=== PATIENT | female | born 1995 | race Caucasian/White ===

== ENCOUNTER 2016-07-17 08:38 | Emergency (ER) | payer BC ==
[2016-07-17 09:16] VITALS: BP 109/71
--- NOTE | 2016-07-17 10:35 | UC ---
Headache HPI - HPI Summary HPI Summary: hit in head by a [employer] ball yesterday no loc---did have headache and felt nauseated, today has continued headache - History Of Current Complaint Chief Complaint: UCHeadInjury Stated Complaint: HEAD INJURY Time Seen by Provider: 07/17/16 10:21 Hx Obtained From: Patient Hx Last Menstrual Period: current ?: No Onset/Duration: Sudden Onset, Lasting Days - 1, Still Present Onset Of Symptoms: Sudden Pain Intensity: 4 Pain Scale Used: 0-10 Numeric Timing: Constant Character: Throbbing Location of Headache: Frontal Aggravating Factor: Nothing Allevating Factors: Rest, Medication Associated Signs And Symptoms: Positive: Nausea Related History: Recent Trauma: - Allergies/Home Medications Allergies/Adverse Reactions: Allergies Allergy/AdvReac Type Severity Reaction Status Date / Time Penicillins Allergy Rash Verified 07/17/16 09:09 Sulfa Antibiotics Allergy Rash Verified 07/17/16 09:09 PMH/Surg Hx/FS Hx/Imm Hx Previously Healthy: Yes - concussion in the fall 2015 Endocrine History Of: Denies: Diabetes, Thyroid Disease Cardiovascular History Of: Denies: Cardiac Disorders, Hypertension Respiratory History Of: Denies: COPD, Asthma GI/ History Of: Denies: Ulcer - Surgical History Surgical History: Yes Surgery Procedure, Year, and Place: wisdom teeth - Family History Known Family History: Positive: Cardiac Disease, Hypertension, Diabetes Negative: Seizure Disorder - Social History Occupation: Employed Full-time Lives: With Family Alcohol Use: Occasionally Substance Use Type: None Smoking Status (MU): Never Smoked Tobacco - Immunization History Most Recent Influenza Vaccination: fall 2015 Review of Systems Constitutional: Negative Skin: Negative Eyes: Negative ENT: Negative Respiratory: Negative Cardiovascular: Negative Gastrointestinal: Negative Genitourinary: Negative Motor: Negative Neurovascular: Negative Musculoskeletal: Negative Neurological: Headache Psychological: Negative All Other Systems Reviewed And Are Negative: Yes Physical Exam Triage Information Reviewed: Yes Appearance: Well-Appearing, No Pain Distress, Well-Nourished Vital Signs: Initial Vital Signs Temp 97.8 F 07/17/16 09:10 Pulse 59 07/17/16 09:10 Resp 16 07/17/16 09:10 BP 109/71 07/17/16 09:10 Pulse Ox 99 07/17/16 09:10 Vital Signs Reviewed: Yes Eye Exam: Normal Eyes: Positive: Conjunctiva Clear, Other: - perrla, eomi, fundascopic exam wnl ENT Exam: Normal ENT: Positive: Normal ENT inspection, Hearing grossly normal, Pharynx normal, TMs normal. Negative: Nasal congestion, Nasal drainage Dental Exam: Normal Neck exam: Normal Neck: Positive: Supple, Nontender, No Lymphadenopathy Respiratory Exam: Normal Respiratory: Positive: Chest non-tender, Lungs clear, Normal breath sounds, No respiratory distress, No accessory muscle use Cardiovascular Exam: Normal Cardiovascular: Positive: RRR, No Murmur, Pulses Normal, Brisk Capillary Refill Musculoskeletal Exam: Normal Musculoskeletal: Positive: Strength Intact, ROM Intact, No Edema Neurological Exam: Normal Neurological: Positive: Alert, Muscle Tone Normal, Other: - rhombery wnl, balence wnl, no pronator drift Psychological Exam: Normal Psychological: Positive: Normal Response To Family, Age Appropriate Behavior Skin Exam: Normal Headache Course/Dx - Course Course Of Treatment: rest, slow 5 day return to sports after symptoms have resolved - Differential Dx/Diagnosis Differential Diagnosis/HQI/PQRI: Tension Headache, Viral Syndrome, Other - concussion with out LOC Provider Diagnoses: Concussion with out LOC Discharge - Discharge Plan Condition: Stable Disposition: HOME Patient Education Materials: Concussion (ED), Post Concussion Syndrome (ED) Forms: *Work Release Referrals: Marizol Garcia MD [Primary Care Provider] - If Needed
== END 2016-07-17 10:43 | disposition home or self-care (01) ==
LOC: UCEAST 08:38
DX: S06.0X0A Concussion without loss of consciousness, initial encounter (principal); Y93.66 Activity, soccer; W21.02XA Struck by soccer ball, initial encounter; Z88.0 Allergy status to penicillin
CPT/HCPCS: 99211; G0463

== ENCOUNTER 2016-07-19 14:57 | Emergency (ER) | payer BC ==
[2016-07-19 15:14] VITALS: BP 113/65
--- NOTE | 2016-07-19 21:31 | UC ---
Mallory, DoctorLuly, scribed for Ann-Marie Kline MD on 07/19/16 at 1619 . Headache HPI - HPI Summary HPI Summary: 20 year old female arrived to [facility] c/o headache and light sensitivity after being hit in the head by a soccer ball on 07/16 at 21:30. She reports constant headache and light/sound sensitivity since onset, as well as marginal lightheadedness while standing up abruptly. She denies any lightheadedness otherwise; and denies any dizziness, nausea or vomiting. She previously visited [facility] on 07/17 and was dx with a concussion with no LOC by Dr. George. No CT was done. She reports taking Ibuprofen to manage her [place]. She has a PMHx of concussions with one prior dx of a concussion in 02/2016; no other pertinent PMHx. She plays soccer 1-2x a week in a [employer] and is employed full- time. - History Of Current Complaint Chief Complaint: UCHeadache Stated Complaint: HEADACHE,LIGHT SENSITIVITY Time Seen by Provider: 07/19/16 15:49 Hx Obtained From: Patient Hx Last Menstrual Period: 07/12/16 ?: No Onset/Duration: Gradual Onset, Lasting Days, Still Present Onset Of Symptoms: Sudden, Still Present Initially Headache Was: Moderate Currently Pain Is: Moderate Pain Intensity: 7 Pain Scale Used: 0-10 Numeric Timing: Constant Character: Dull - frontal Location of Headache: Frontal Aggravating Factor: Position Change - lightheadedness when standing up suddenly , Bright Lights Allevating Factors: Nothing Associated Signs And Symptoms: Negative: Dizziness, Nausea, Vomiting, Fever Related History: Recent Trauma: - struck with soccer ball - Risk Factors SAH Risk Factors: Negative Meningitis Risk Factors: Negative SDH Risk Factors: Negative Temporal Arteritis Risk Factors: Negative - Allergies/Home Medications Allergies/Adverse Reactions: Allergies Allergy/AdvReac Type Severity Reaction Status Date / Time Penicillins Allergy Rash Verified 07/19/16 15:14 Sulfa Antibiotics Allergy Rash Verified 07/19/16 15:14 PMH/Surg Hx/FS Hx/Imm Hx Previously Healthy: No - prior concussion Endocrine History Of: Denies: Diabetes, Thyroid Disease Cardiovascular History Of: Denies: Cardiac Disorders, Hypertension Respiratory History Of: Denies: COPD, Asthma GI/ History Of: Denies: Ulcer - Surgical History Surgical History: Yes Surgery Procedure, Year, and Place: wisdom teeth - Family History Known Family History: Positive: Cardiac Disease, Hypertension, Diabetes Negative: Seizure Disorder - Social History Occupation: Employed Full-time Lives: Alone Alcohol Use: Occasionally Substance Use Type: None Smoking Status (MU): Never Smoked Tobacco - Immunization History Most Recent Influenza Vaccination: fall 2015 Review of Systems Constitutional: Negative Eyes: Photophobia ENT: Other - sensitive to loud sounds Gastrointestinal: Other - denies vomiting or nausea Neurological: Headache - headache in the front of the head, Other - lightheadedness after suddenly standing up All Other Systems Reviewed And Are Negative: Yes Physical Exam Triage Information Reviewed: Yes Appearance: Well-Appearing, Well-Nourished, Pain Distress - mild pain distress Vital Signs: Initial Vital Signs Temp 98.9 F 07/19/16 15:10 Pulse 60 07/19/16 15:10 Resp 16 07/19/16 15:10 BP 113/65 07/19/16 15:10 Pulse Ox 100 07/19/16 15:10 Vital Signs Reviewed: Yes Eye Exam: Normal - Fundoscopic exam performed - discs are sharp and flat, no hemorrhage Eyes: Positive: Conjunctiva Clear ENT: Positive: Hearing grossly normal, Pharynx normal, TMs normal, Other: - no Hernandez's sign Neck: Positive: Supple Respiratory: Positive: No respiratory distress Cardiovascular: Positive: RRR, Pulses Normal, Brisk Capillary Refill Musculoskeletal: Positive: Strength Intact, ROM Intact Neurological: Positive: Alert - A&O x3, Other: - Gait WNL, sensations intact, motor function 5/5, CN II-XII intact. Psychological Exam: Normal Skin Exam: Normal Headache Course/Dx - Differential Dx/Diagnosis Differential Diagnosis/HQI/PQRI: Migraine, Subarachnoid Hemorrhage, Tension Headache, Other - post concussion headache Provider Diagnoses: post concussion headache Discharge - Discharge Plan Condition: Stable Disposition: HOME Patient Education Materials: Concussion (ED) Forms: *Work Release Referrals: Marizol Garcia MD [Primary Care Provider] - Rose Lima MD [Medical Doctor] - 1 Day The documentation as recorded by the Doctor clark Tahera accurately reflects the service I personally performed and the decisions made by , Ann-Marie Kline MD.
== END 2016-07-19 16:14 | disposition home or self-care (01) ==
LOC: UCEAST 14:57
DX: F07.81 Postconcussional syndrome (principal); Z88.0 Allergy status to penicillin; Z88.2 Allergy status to sulfonamides
CPT/HCPCS: 99211; G0463

== ENCOUNTER 2016-09-06 09:55 | Emergency (ER) | payer BC ==
[2016-09-06 10:42] VITALS: BP 117/75
--- NOTE | 2016-09-06 11:20 | UC ---
Complaint Female HPI - HPI Summary HPI Summary: complaint of pain with urination that started today increased frequency and urgency unable to express much urine when she urinates increased fluids denies abdominal pain back pain and fever hasn't taken any medications for pain - History Of Current Complaint Chief Complaint: UCGU Stated Complaint: URINARY ISSUE Time Seen by Provider: 09/06/16 11:15 Hx Obtained From: Patient Hx Last Menstrual Period: 09/06/2016 - Allergies/Home Medications Allergies/Adverse Reactions: Allergies Allergy/AdvReac Type Severity Reaction Status Date / Time Penicillins Allergy Rash Verified 09/06/16 10:37 Sulfa Antibiotics Allergy Rash Verified 09/06/16 10:37 PMH/Surg Hx/FS Hx/Imm Hx Previously Healthy: Yes Endocrine History Of: Denies: Diabetes, Thyroid Disease Cardiovascular History Of: Denies: Cardiac Disorders, Hypertension Respiratory History Of: Denies: COPD, Asthma GI/ History Of: Denies: Ulcer - Surgical History Surgical History: Yes Surgery Procedure, Year, and Place: wisdom teeth - Family History Known Family History: Positive: Cardiac Disease, Hypertension, Diabetes Negative: Seizure Disorder - Social History Occupation: Student Lives: With Family Alcohol Use: Occasionally Substance Use Type: None Smoking Status (MU): Never Smoked Tobacco - Immunization History Most Recent Influenza Vaccination: fall 2015 Review of Systems Constitutional: Negative Skin: Negative Eyes: Negative ENT: Negative Respiratory: Negative Cardiovascular: Negative Gastrointestinal: Negative Genitourinary: Dysuria, Hematuria, Frequency, Urgency Motor: Negative Neurovascular: Negative Musculoskeletal: Negative Neurological: Negative Psychological: Negative All Other Systems Reviewed And Are Negative: Yes Physical Exam Triage Information Reviewed: Yes Appearance: No Pain Distress, Well-Nourished Vital Signs: Initial Vital Signs Temp 98.2 F 09/06/16 10:38 Pulse 94 09/06/16 10:38 Resp 18 09/06/16 10:38 BP 117/75 09/06/16 10:38 Pulse Ox 100 09/06/16 10:38 Vital Signs Reviewed: Yes Eyes: Positive: Conjunctiva Clear ENT: Positive: Pharynx normal, TMs normal Neck: Positive: No Lymphadenopathy Respiratory: Positive: Lungs clear, Normal breath sounds, No respiratory distress, No accessory muscle use Cardiovascular: Positive: RRR, No Murmur, Pulses Normal, Brisk Capillary Refill Abdomen Description: Positive: Nontender, No Organomegaly, Soft. Negative: CVA Tenderness (R), CVA Tenderness (L), Distended, Guarding Bowel Sounds: Positive: Present Musculoskeletal: Positive: No Edema Neurological: Positive: Alert Psychological Exam: Normal Skin Exam: Normal Complaint Female Dx - Differential Dx/Diagnosis Differential Diagnosis/HQI/PQRI: Urinary Tract Infection Provider Diagnoses: UTI Discharge - Discharge Plan Condition: Stable Disposition: HOME Prescriptions: Nitrofurantoin Monohyd Macro [Macrobid] 100 mg PO BID #10 cap Phenazopyridine TAB* [Pyridium 100 mg TAB*] 100 mg PO TID #6 tab Patient Education Materials: Urinary Tract Infection in Women (ED) Referrals: Marizol Garcia MD [Primary Care Provider] - Additional Instructions: Please take antibiotic and pyridium as directed Increase fluids and rest Take acetaminophen or ibuprofen for fever or pain Please review your discharge instructions. If your symptoms do not improve please call your primary care provider or return to urgent care.
== END 2016-09-06 11:28 | disposition home or self-care (01) ==
LOC: UCEAST 09:55
DX: N39.0 Urinary tract infection, site not specified (principal); R31.9 Hematuria, unspecified; Z88.0 Allergy status to penicillin; Z88.2 Allergy status to sulfonamides
CPT/HCPCS: 81003; 87086; 99212; G0463

== ENCOUNTER 2016-11-14 16:01 | Emergency (ER) | payer BC ==
[2016-11-14 16:22] VITALS: BP 104/68
--- NOTE | 2016-11-14 16:22 | UC ---
Eye Complaint HPI - HPI Summary HPI Summary: 21 YEAR OLD FEMALE PRESENTS WITH LEFT EYE PAIN SECONDARY TO A PIECE OF HAIR . - History of Current Complaint Stated Complaint: EYE COMPLAINT Time Seen by Provider: 11/14/16 16:21 Hx Last Menstrual Period: 09/06/2016 - Allergies/Home Medications Allergies/Adverse Reactions: Allergies Allergy/AdvReac Type Severity Reaction Status Date / Time Penicillins Allergy Rash Verified 09/06/16 10:37 Sulfa Antibiotics Allergy Rash Verified 09/06/16 10:37 PMH/Surg Hx/FS Hx/Imm Hx - Surgical History Surgical History: Yes Surgery Procedure, Year, and Place: wisdom teeth - Family History Known Family History: Positive: Cardiac Disease, Hypertension, Diabetes Negative: Seizure Disorder - Social History Alcohol Use: Occasionally Substance Use Type: None Smoking Status (MU): Never Smoked Tobacco - Immunization History Most Recent Influenza Vaccination: fall 2015 Review of Systems Constitutional: Negative Skin: Negative Eyes: Eye Redness ENT: Negative Respiratory: Negative Cardiovascular: Negative Gastrointestinal: Negative Genitourinary: Negative Motor: Negative Neurovascular: Negative Musculoskeletal: Negative Neurological: Negative Psychological: Negative All Other Systems Reviewed And Are Negative: Yes Physical Exam Triage Information Reviewed: Yes Eye Exam: Normal Eyes: Positive: Conjunctiva Inflamed, Discharge - CLEAR ENT Exam: Normal Dental Exam: Normal Neck exam: Normal Neck: Positive: 1 Respiratory Exam: Normal Cardiovascular Exam: Normal Abdominal Exam: Normal Musculoskeletal Exam: Normal Neurological Exam: Normal Psychological Exam: Normal Skin Exam: Normal Eye Complaint Course/Dx - Differential Dx/Diagnosis Provider Diagnoses: GPC Discharge - Discharge Plan Condition: Stable Disposition: HOME Prescriptions: Ciprofloxacin 0.3% OPTH.CLYDE* [Cipro 0.3% Opth*] 2 drop LEFT EYE Q4H #1 btl Patient Education Materials: Conjunctivitis (ED) Referrals: Marizol Garcia MD [Primary Care Provider] -
[2016-11-14] MEDS ORDERED: Tetracaine 0.5% OPTH.SOL 4 ML* 1 DROP BTL LEFT EYE ONE (16:26)
== END 2016-11-14 16:46 | disposition home or self-care (01) ==
LOC: UCEAST 16:01
DX: H10.419 Chronic giant papillary conjunctivitis, unspecified eye (principal); Z88.3 Allergy status to other anti-infective agents; Z88.0 Allergy status to penicillin
CPT/HCPCS: 99212; A9270-GY; G0463

== ENCOUNTER 2017-10-30 16:57 | Emergency (ER) | payer BC ==
[2017-10-30 17:06] VITALS: BP 110/72
[2017-10-30] MEDS ORDERED: Acetaminophen TAB* 325 MG PO ONE (17:35)
--- NOTE | 2017-10-30 18:12 | UC ---
Head Injury HPI - HPI Summary HPI Summary: States she was playing soccer in [employer] which is [employer] this morning. SHe was defending a man who was about 2 feet from her and kick the ball which hit her in the forehead. She states she held her head and face and the game was stopped after which she was walked out of the field. Denies LOC, nausea/vomiting. She went back home and ate after which she felt better, but continues to have pain on forehead. She abstained from taking ibuprofen since she was afraid of possible bleeding complications. She denies neck pain but states she has problems focusing now. Denies drowsiness or fatigue - History Of Current Complaint Chief Complaint: UCHeadInjury Stated Complaint: HEAD INJURY Time Seen by Provider: 10/30/17 17:17 Hx Obtained From: Patient Hx Last Menstrual Period: now ?: No Onset/Duration: Sudden Onset, Lasting Hours Severity Currently: Mild Severity Initially: Moderate Pain Intensity: 3 Pain Scale Used: 0-10 Numeric Character: Dull, Throbbing, Pressure Aggravating Factor(s): Nothing Alleviating Factor(s): Nothing Associated Signs And Symptoms: Positive: Negative - Risk Factors SDH Risk Factor: Negative - Allergies/Home Medications Allergies/Adverse Reactions: Allergies Allergy/AdvReac Type Severity Reaction Status Date / Time Penicillins Allergy Rash Verified 10/30/17 17:06 Sulfa (Sulfonamide Allergy Rash Verified 10/30/17 17:06 Antibiotics) PMH/Surg Hx/FS Hx/Imm Hx Previously Healthy: Yes Psychological History: Depression - Surgical History Surgical History: Yes Surgery Procedure, Year, and Place: wisdom teeth - Family History Known Family History: Positive: Cardiac Disease, Hypertension, Diabetes Negative: Seizure Disorder - Social History Alcohol Use: Rare Substance Use Type: Prescribed Smoking Status (MU): Never Smoked Tobacco - Immunization History Most Recent Influenza Vaccination: fall 2015 Review of Systems Neurological: Headache All Other Systems Reviewed And Are Negative: Yes Physical Exam Triage Information Reviewed: Yes Appearance: Well-Appearing, No Pain Distress, Well-Nourished Vital Signs: Initial Vital Signs Temp 98.5 F 10/30/17 17:03 Pulse 69 10/30/17 17:03 Resp 18 10/30/17 17:03 BP 110/72 10/30/17 17:03 Pulse Ox 99 10/30/17 17:03 Vital Signs Reviewed: Yes Eyes: Positive: Conjunctiva Clear ENT: Positive: Hearing grossly normal, Pharynx normal, TMs normal, Uvula midline Neck: Positive: Supple, Nontender, No Lymphadenopathy Respiratory: Positive: Chest non-tender, Lungs clear, Normal breath sounds, No respiratory distress Cardiovascular: Positive: RRR, No Murmur, Pulses Normal, Brisk Capillary Refill Abdomen Description: Positive: Nontender, No Organomegaly, Soft Bowel Sounds: Positive: Present Musculoskeletal: Positive: Strength Intact, ROM Intact, No Edema Neurological Exam: Other - CN II to XII grossly intact, normal sensory, FROM X4 , Strength 5/5x4 flexion and extension , DTR symmetrical, cerebellar function and gait is normal. ROmberg negative. Neurological: Positive: Alert, Muscle Tone Normal Psychological: Positive: Age Appropriate Behavior Head Injury Course/Dx - Course Course Of Treatment: Patient has head concussion, neurological exam was normal. D/w patient possible short term effects of concussion, avoid bright screens or activities that demand focus, use protection and /or avoid contact sports for 6 weeks. - Differential Dx/Diagnosis Provider Diagnoses: Concussion Head Discharge - Sign-Out/Discharge Documenting (check all that apply): Discharge/Admit/Transfer - Discharge Plan Condition: Good Disposition: HOME Patient Education Materials: Concussion (ED), Acetaminophen (By mouth) Referrals: Marizol Garcia MD [Primary Care Provider] - - Billing Disposition and Condition Condition: GOOD Disposition: Home
== END 2017-10-30 17:40 | disposition home or self-care (01) ==
LOC: UCEAST 16:57
DX: S06.0X0A Concussion without loss of consciousness, initial encounter (principal); Z88.0 Allergy status to penicillin; Z88.2 Allergy status to sulfonamides; W21.02XA Struck by soccer ball, initial encounter; Y93.66 Activity, soccer; Y92.9 Unspecified place or not applicable
CPT/HCPCS: 99211; G0463